=== PATIENT | male | born 1995 | race Asian ===

== ENCOUNTER 2021-12-18 08:36 | Inpatient (IN) ==
--- NOTE | 2021-12-07 08:57 | Anesthesiology Consultation ---
Date of Service December 07, 2021 Assessment & Plan (1) Encounter for pre-operative examination: COVID screening: Per assessment on 12/07: No known COVID-19 positive contacts or current COVID-19 related symptoms. Travel screen negative. Patient vaccinated. At surgeon discretion if preop Covid testing being done. Chart Review Chart Review: Acceptable Risk for Surgery and Patient NOT seen in Pre Admission Testing History Surgery Operation Date: 12/18/21 11:30 Proposed Procedures p Robotic Laparoscopic Assisted Partial Nephrectomy - Left - Caesar Arnold MD Height/Weight Height: 5 ft 10 in Weight: 67.132 kg Allergies Allergy/AdvReac Type Severity Reaction Status Date / Time No Known Allergies Allergy Verified 12/07/21 08:26 Medications Home Medications Medication Instructions Recorded Confirmed Last Taken Lactobacil.acidophilus-Bifido.animalis 1 cap PO DAILY 12/07/21 12/07/21 Unknown 5 billion cell sprinkle capsule (Probiotic) Past Medical History Medical History Acid reflux Occasional Renal mass, left Past Family History Family History Other No family history of adverse response to anesthesia Past Surgical History Surgical History [place] teeth removed Social History Smoking Status: Never smoker Hx Alcohol Use: Yes Alcohol type: beer, wine and hard liquor alcohol intake frequency: a few times a month substance use type: does not use Lab Results Anesthesia Preop Results Results Anesthesia Widget: WBC 4.04 K/ul (4.8-10.8) L 11/20/21 Hgb 15.3 g/dl (14.0-18.0) 11/20/21 Hct 44.3 % (40.1-51.0) 11/20/21 Plt 259 K/uL (130-400) 11/20/21 Na 139 mmol/L (136-145) 11/20/21 K 4.0 mmol/L (3.5-5.1) 11/20/21 Cl 105 mmol/L (98-107) 11/20/21 CO2 29 mmol/L (21-32) 11/20/21 BUN 11 mg/dl (6-23) 11/20/21 Creat 0.81 mg/dl (0.6-1.4) 11/20/21 Glucose Level 75 mg/dl (70-99(Fasting)) 11/20/21 Urine Color Yellow 11/20/21 Urine Appearance Clear (Clear) 11/20/21 Urine pH 6.5 (4.5-7.5) 11/20/21 Urine Specific [place] 1.003 (1.000-1.030) 11/20/21 Urine Protein Negative (Negative) 11/20/21 Urine Glucose (UA) Negative (Negative) 11/20/21 Urine Ketones Negative (Negative) 11/20/21 Urine Blood Negative (Negative) 11/20/21 Urine Nitrite Negative (Negative) 11/20/21 Urine Bilirubin Negative (Negative) 11/20/21 Urine Urobilinogen Negative (Negative) 11/20/21 Urine Leukocyte Esterase Negative (Negative) 11/20/21 Testing Other Testing Chest CT (11/20/21) No acute intrathoracic abnormality. No lymphadenopathy or evidence of pulmonary metastatic disease. Indeterminate 4 mm solid nodule of the basal left lower lobe is favored to be benign, stable from 09/25/2021. As a precautionary measure, a 3 month follow-up chest CT may be considered.
[~2021-12-18 08:36] MED LIST: LIDOCAINE 2% MPF LOCAL 5 ML VIAL INFIL ONE; LR 15ML/HR IV SCH; PROPOFOL IV EMULSION 10 MG/ML 20 ML VIAL IV ONE; ROCURONIUM BROMIDE 10 MG/ML 5 ML VIAL IV ONE; ceFAZolin 2000MG 2,000 MG/15 ML SYR IV SCH
[2021-12-18] MEDS ORDERED: ATROPINE SULFATE 0.1 MG/ML 10ML SYR IV PRN (08:56)
[2021-12-18] MEDS ORDERED: fentaNYL citrate 100 MCG/2 ML VIAL IV PRN (08:56)
[2021-12-18] MEDS ORDERED: ePHEDrine sulfate 50 MG/ML AMP IV PRN (08:56)
[2021-12-18] MEDS ORDERED: ONDANSETRON INJ 2 MG/ML 2 ML VIAL IV PRN ×2 (08:56→14:48)
--- NOTE | 2021-12-18 10:26 | History & Physical Report ---
Date of Service December 18, 2021 Assessment & Plan (1) Renal mass: Plan: suspected RCC plan for lap/robotic partial nephrectomy today risks, benefits, and expectations reviewed History of Present Illness Primary Care Provider: Kofi Tapia healthy 26y/o male with an incidentally discovered left renal mass here for partial nephrectomy Allergies Allergy/AdvReac Type Severity Reaction Status Date / Time No Known Allergies Allergy Verified 12/18/21 08:55 Home Medications Medication Instructions Recorded Confirmed Type Lactobacil.acidophilus-Bifido.animalis 1 cap PO DAILY 12/07/21 12/18/21 History 5 billion cell sprinkle capsule (Probiotic) Past Med/Surg History Medical History Acid reflux Occasional Renal mass, left Surgical History [place] teeth removed Family History Other No family history of adverse response to anesthesia Social History (Updated 11/02/21 @ 13:13 by June Conroy) Smoking Status: Never smoker Second Hand Exposure: Yes ( A CHILD (FATHER SMOKED)); Hx Alcohol Use: Yes Alcohol type: beer, wine and hard liquor Preferred Language: Wolof Communication Ability Comment: PT'S FIRST IS INDONESIAN BUT DENIES 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 Required: No Beliefs That Will Affect Care: None marital status: Single Current Living Situation: Other Current Living Situation Comment: [employer]>LIVES OFF CAMPUS *1 ROOMATE current occupational status: student Feels Safe at Home: Yes Safety Concerns: Feels Safe At This Time Assistive Devices: None Physical Exam Constitutional: well developed and well nourished Neck: neck nontender Respiratory: normal respiratory effort; no respiratory distress and does not use accessory muscles Cardiovascular: Rate/Rhythm: regular rate Vessels: radial pulses present Extremities: no edema Gastrointestinal (Abdomen): Inspection/Auscultation: abdomen normal to inspection Percussion/Palpation: abdomen soft; abdomen nontender and no guarding Musculoskeletal: Head/Neck/Chest: normocephalic and head atraumatic Extremities: extremities normal to inspection Skin: no rashes and no lesions Trauma: no evidence of skin trauma Neurologic: awake; not obtunded Speech / Cognition: normal speech Motor/Sensory: no tremor Psychiatric: Orientation: alert and oriented x 3 Genitourinary: no CVA tenderness Lymphatic: no lymphadenopathy Results & Data ([facility]) Vital Signs (Past 12 Hours) Vital Signs Temp Pulse Resp BP Pulse Ox O2 Del Method 12/18/21 09:00 37.1 C 93 H 16 131/84 100 Room Air
[2021-12-18] MEDS ORDERED: MIDAZOLAM HCL 1 MG/ML 2ML VIAL ONE (10:36)
[2021-12-18] MEDS ORDERED: fentaNYL citrate 100 MCG/2 ML VIAL ONE (10:36)
[2021-12-18] MEDS ORDERED: ACETAMINOPHEN 1000 MG/100 ML IV IV ONE (10:39)
[2021-12-18] MEDS ORDERED: MANNITOL 25% 12.5 GM/50 ML VIAL IV ONE ×2 (10:48→12:53)
[2021-12-18] MEDS ORDERED: BUPIVACAINE 0.5 % 5 MG/1 ML MPF 30ML VIAL ONE (11:04)
[2021-12-18] MEDS ORDERED: DEXAMETHASONE SOD INJ 4 MG/ML VIAL ONE (11:27)
[2021-12-18] MEDS ORDERED: ROCURONIUM BROMIDE 10 MG/ML 5 ML VIAL IV ONE (11:29)
[2021-12-18] MEDS ORDERED: HYDROmorphone INJ 2 MG/ML SYR/VIAL ONE (11:57)
[2021-12-18] MEDS ORDERED: SURGICEL ABSORB HEMOSTAT 2IN X 14IN TOP ONE (12:32)
[2021-12-18] MEDS ORDERED: FLOSEAL HEMOSTATIC MATRIX 10ML TOP ONE (12:32)
[2021-12-18] MEDS ORDERED: TISSEEL FIBRIN SEALANT 10ML TOP ONE ×2 (12:32→13:02)
[2021-12-18] MEDS ORDERED: ONDANSETRON INJ 2 MG/ML 2 ML VIAL ONE (12:44)
[2021-12-18] MEDS ORDERED: GLYCOPYRROLATE 0.2 MG/ML VIAL ONE (12:44)
[2021-12-18] MEDS ORDERED: NEOSTIGMINE METHYLSULFATE 1 MG/ML 10ML VIAL ONE (12:44)
--- NOTE | 2021-12-18 13:53 | Operative Report ---
PG Post Operative Report Pre & Post Diagnosis Operation Date: 12/18/21 10:20 Pre-Op Diagnosis: Left Renal Mass Post-Op Diagnosis: Left Renal Mass I identified the patient and participated in the time-out.: Yes Procedure Operation Date: 12/18/21 10:20 Actual Procedures p Left Robotic Laparoscopic Assisted Partial Nephrectomy(Left) - Caesar Arnold MD Surgeon Caesar Arnold MD Applications Sales Representative Nani Menard Estimated Blood Loss 25 Findings Consistent with Post-Op Diagnosis Specimens Left renal mass Description of Procedure The patient was identified in the preoperative holding area, appropriate informed consents were reviewed and completed and the patient was transferred to the operative suite. Upon arrival, appropriate antibiotics and anesthesia were administered and the patient was placed in [id number] left side up lateral decubitus position with the bed flexed and padded and appropriate fashion. Following sterile prep and drape a Veress needle was passed into the left upper quadrant. Insufflation was uniform to 15 mmHg. I marked tentative port sites with 2 senior it assistant ports placed along the midline and 3 robotic ports placed lateral to the rectus border. An infraumbilical 12 mm senior it assistant port was placed utilizing a Visiport and 10 mm 0 degree lens. Entry to the abdomen was uncomplicated and he had no adhesive disease. I was able to place all other ports under direct vision without difficulty. We then docked the robot. Of note, protuberant mass was easily visualized in the left upper quadrant consistent with the location of the tumor. I did mobilize the lateral border of the colon and mesentery off of the kidney exposing the anterior surface of Gerota's fascia. He is extremely thin and has an attenuated Gerota's fascia. I was able to expose the mass and kidney itself circumferentially around the border. I then turned my attention to the lower pole of the kidney, I elevated and identified the gonadal vein. We dissected just lateral to the gonadal vein and followed up to the inferior aspect of the renal vein. The renal vein was dissected circumferentially and a renal artery was visualized immediately posterior to it. There were numerous small venous branches around this area that we left intact. Following complete skeletonization of the mass and the hilar structures we prepared to clamp. 12.5 g of mannitol was administered and a short curved bulldog clamp was placed across the renal artery. We then resected the mass entirely. Reapproximation of the kidney was conducted utilizing a sliding clip technique with 3 passes across the defect. This closed the defect appropriately and the bulldog clamp was opened and removed. Warm ischemia time was 7 minutes. There was no bleeding after removal of the clamp. The hilar structures were also intact. The kidney returned to its pink color appropriately. We did place a small amount of Floseal and Tisseel over the defect before closing Gerota's fascia utilizing a running 3 OV lock suture. The omentum was draped back over the kidney, the mass was collected in an Endo Catch bag and withdrawn through the infraumbilical port. The infraumbilical port was closed with 0 Vicryl through the fascia followed by 4-0 Monocryl to the skin. The upper midline senior it assistant port was closed in the same fashion. 3 robotic ports were closed with 4-0 Monocryl through the skin. All areas were infiltrated with half percent Marcaine. A decision was made not to leave a drain in place. His Katz catheter was also removed shortly after surgery as the renal defect was quite shallow. Nani Robles and Chris Menard were present and assisted throughout the case. I attest to the content of the Intraoperative Record and any orders documented therein. Any exceptions are noted below.
--- NOTE | 2021-12-18 14:18 | Anesthesiology Progress Note ---
Date of Service December 18, 2021 Anesthesia Post Procedure Vital Signs Vital Signs: Temp Pulse Pulse Resp BP Pulse Ox O2 Del Method 12/18/21 14:10 92 H 12 136/85 100 Room Air 12/18/21 14:00 94 H 14 137/87 100 Room Air 12/18/21 13:50 92 H 14 139/93 99 Room Air 12/18/21 13:43 97.9 F 96 H 16 144/95 H 100 Oxymask 12/18/21 09:00 98.8 F 93 H 16 131/84 100 Room Air O2 Flow Rate 12/18/21 14:10 12/18/21 14:00 12/18/21 13:50 12/18/21 13:43 3 12/18/21 09:00 Pain Intensity Abdomen: Pain Intensity: 3 Transfer of Care Handoff Completed per policy Notes Mental Status: alert / awake / arousable and participated in evaluation Patient Amnestic to Procedure: Yes Nausea / Vomiting: adequately controlled Pain: adequately controlled Airway Patency, RR, SpO2: stable & adequate BP & HR: stable & adequate Hydration State: stable & adequate Anesthetic Complications: no major complications apparent and Pt Satisfied with anesthetic care
[2021-12-18] MEDS ORDERED: oxyCODONE HCL IR 5 MG TAB (IMMEDIATE RELEASE) PO PRN ×2 (14:48)
[2021-12-18] MEDS ORDERED: MoRPHine SULFATE 2 MG/ML CARP IV PRN (14:48)
[2021-12-18] MEDS ORDERED: MoRPHine SULFATE 4 MG/ML 1 ML CARP\\VIAL IV PRN (14:48)
[2021-12-18 15:04] LABS: Hematocrit (blood only) 43.3 % (40.1-51.0); Hemoglobin 15.1 g/dl (14.0-18.0); Mean Corpuscular Hemoglobin 30.8 pg (25.0-34.0); Mean Corpuscular Hgb Conc 34.9 g/dL (32.0-36.0); Mean Corpuscular Volume 88.4 fL (80.0-100.0); Mean Platelet Volume 9.9 fL (9.4-12.4); Platelet Count 217 K/uL (130-400); RDW Coefficient of Variation 12.3 % (11.5-14.5); RDW Standard Deviation 39.8 fL (36.4-46.3)
[2021-12-18 15:23] LABS: Basophils # (auto) 0.02 K/uL (0-0.2); Basophils % (auto) 0.1 %; Immature Granulocytes # (auto) 0.06 K/uL (0.00-0.02); Immature Granulocytes % (auto) 0.4 %; Lymphocytes # (auto) 0.66 K/uL (1.2-3.4); Lymphocytes % (auto) 4.6 %; Monocytes # (auto) 0.16 K/uL (0.24-0.82); Monocytes % (auto) 1.1 %; Neutrophils % (auto) 93.8 %; RBC Morphology Unremarkable
[2021-12-18] MEDS: LACTATED RINGER'S 1,000 ML IV SCH ×2 (15:26→22:38)
[2021-12-18 15:30] LABS: BUN Creatinine Ratio 9.6 (10-20); Calcium 8.9 mg/dl (8.5-10.1); Creatinine Clr Calc Pharmacy 111.7 ml/min; Est GFR (African American) 127.4 ml/min; Est GFR (Non-African American) 109.9 ml/min; Potassium 4.3 mmol/L (3.5-5.1)
[2021-12-18] MEDS: ceFAZolin 2000MG 2,000 MG/15 ML SYR IV SCH ×2 (16:15→22:51)
[2021-12-18] MEDS: DOCUSATE SODIUM 100 MG CAP PO SCH (20:38)
[2021-12-19] MEDS: ACETAMINOPHEN 325 MG TAB PO PRN ×3 (05:27→18:29)
[2021-12-19 07:28] LABS: Basophils # (auto) 0.02 K/uL (0-0.2); Basophils % (auto) 0.2 %; Eosinophils # (auto) 0.01 K/uL (0-0.50); Eosinophils % (auto) 0.1 %; Hematocrit (blood only) 38.9 % (40.1-51.0); Hemoglobin 13.6 g/dl (14.0-18.0); Immature Granulocytes # (auto) 0.03 K/uL (0.00-0.02); Immature Granulocytes % (auto) 0.3 %; Lymphocytes # (auto) 1.35 K/uL (1.2-3.4); Lymphocytes % (auto) 11.5 %; Mean Corpuscular Hemoglobin 31.3 pg (25.0-34.0); Mean Corpuscular Volume 89.6 fL (80.0-100.0); Mean Platelet Volume 9.6 fL (9.4-12.4); Monocytes # (auto) 1.29 K/uL (0.24-0.82); Neutrophils # (auto) 9.05 K/uL (1.4-6.5); Neutrophils % (auto) 76.9 %; Platelet Count 194 K/uL (130-400); RDW Coefficient of Variation 11.9 % (11.5-14.5); RDW Standard Deviation 38.8 fL (36.4-46.3); Red Blood Count 4.34 M/uL (4.63-6.08); White Blood Count 11.75 K/ul (4.8-10.8)
[2021-12-19 07:48] LABS: BUN Creatinine Ratio 11.8 (10-20); Calcium 8.7 mg/dl (8.5-10.1); Creatinine Clr Calc Pharmacy 140.2 ml/min; Est GFR (African American) 143.9 ml/min; Est GFR (Non-African American) 124.2 ml/min; Potassium 3.7 mmol/L (3.5-5.1)
--- NOTE | 2021-12-19 08:05 | Urology Progress Note ---
Date of Service December 19, 2021 Assessment & Plan (1) Renal mass: Plan: Suspected renal cell carcinoma status post left robotic partial nephrectomy Recovery very much on pace Ambulate Advance diet Labs are stable Admission and Anticipated Discharge Date Admission Date: December 18, 2021 Subjective Doing very well overall Has some expected abdominal discomfort and some post insufflation pain radiating to his shoulders but otherwise doing extremely well Urinating without issue Labs are all stable Tolerating liquid dietwe will advance this morning Incisions all appropriate Physical Exam Physical Exam: Abdomen soft, moderately tender more on the right than the left, incisions appropriate Results & Data ([facility]) Vital Signs (Past 12 Hours) Vital Signs Temp Pulse Resp BP Pulse Ox O2 Del Method 12/19/21 07:14 36.4 C L 53 L 16 111/67 100 Room Air 12/19/21 05:23 36.5 C 74 14 149/86 H 99 Room Air 12/19/21 01:40 36.8 C 68 14 110/62 99 Room Air 12/18/21 21:48 37.1 C 88 14 120/73 98 Room Air PG Care Time/CCT Total # of Minutes Spent Total Time Spent with Patient: Total time spent is greater than 50% in coordination of care (as documented) at patient's floor/unit and/or counseling patient: Coding Level of Care Code None Diagnoses Renal mass N28.89
[2021-12-19] MEDS: LACTATED RINGER'S 1,000 ML IV SCH ×2 (08:22→18:27)
[2021-12-19] MEDS: DOCUSATE SODIUM 100 MG CAP PO SCH ×2 (08:23→20:15)
[2021-12-19] MEDS ORDERED: ALUMINUM/MAGNESIUM SUSP 30 ML UDC PO PRN (19:44)
[2021-12-20] MEDS ORDERED: bisacodyL 10 MG SUPP PR PRN (00:58)
[2021-12-20] MEDS: ACETAMINOPHEN 325 MG TAB PO PRN (03:05)
[2021-12-20 06:57] LABS: Basophils # (auto) 0.01 K/uL (0-0.2); Basophils % (auto) 0.1 %; Eosinophils # (auto) 0.01 K/uL (0-0.50); Eosinophils % (auto) 0.1 %; Hematocrit (blood only) 36.5 % (40.1-51.0); Hemoglobin 12.7 g/dl (14.0-18.0); Immature Granulocytes # (auto) 0.04 K/uL (0.00-0.02); Immature Granulocytes % (auto) 0.5 %; Lymphocytes # (auto) 0.98 K/uL (1.2-3.4); Lymphocytes % (auto) 11.9 %; Mean Corpuscular Hgb Conc 34.8 g/dL (32.0-36.0); Mean Platelet Volume 9.3 fL (9.4-12.4); Monocytes # (auto) 0.85 K/uL (0.24-0.82); Monocytes % (auto) 10.3 %; Neutrophils # (auto) 6.33 K/uL (1.4-6.5); Neutrophils % (auto) 77.1 %; Platelet Count 165 K/uL (130-400); RDW Standard Deviation 39.2 fL (36.4-46.3); White Blood Count 8.22 K/ul (4.8-10.8)
[2021-12-20 07:22] LABS: Anion Gap 4 (3-11); BUN Creatinine Ratio 13.6 (10-20); Blood Urea Nitrogen 9 mg/dl (6-23); Calcium 8.5 mg/dl (8.5-10.1); Carbon Dioxide 29 mmol/L (21-32); Chloride 105 mmol/L (98-107); Creatinine Clr Calc Pharmacy 161.4 ml/min; Est GFR (African American) > 150.0 ml/min; Est GFR (Non-African American) 131.6 ml/min; Glucose 102 mg/dl (70-99(Fasting)); Potassium 3.5 mmol/L (3.5-5.1); Sodium 138 mmol/L (136-145)
[2021-12-20] MEDS: DOCUSATE SODIUM 100 MG CAP PO SCH (09:07)
--- NOTE | 2021-12-20 09:15 | Urology Progress Note ---
Date of Service December 20, 2021 Assessment & Plan (1) Renal mass: Plan -Postop day #2 status post left robotic partial nephrectomy -Overall feeling well, progressing as expected. -Remains afebrile and hemodynamically stable. -Labs stable. -Voiding without issue. -Tolerating diet. -Anticipate discharge home later today. Admission and Anticipated Discharge Date Admission Date: December 18, 2021 Supervising Physician Co-Signing Physician Notes Doing great, ready for d/c home Subjective Patient examined at bedside this AM. Awake, resting in bed on arrival. No acute distress. States he did have some gas pain and feelings of constipation overnight. He was given a suppository and had a small bowel movement this morning and is passing gas. Feeling much better now. Denies any significant pain at present. No fevers or chills. No nausea or vomiting. Tolerating diet. Ambulating. Voiding without issue. Denies hematuria or dysuria. Review of Systems Constitutional: as per Subjective / HPI Gastrointestinal: as per Subjective / HPI Genitourinary: + as per Subjective / HPI Physical Exam Constitutional: no acute distress Respiratory: normal respiratory effort; no respiratory distress and no labored breathing Gastrointestinal (Abdomen): Percussion/Palpation: abdomen soft; abdomen nontender Incisions appropriate, Dermabond intact. Neurologic: awake Psychiatric: Orientation: alert and oriented x 3 Results & Data ([facility]) Vital Signs (Past 12 Hours) Vital Signs Temp Pulse Resp BP Pulse Ox O2 Del Method 12/20/21 08:10 36.8 C 74 16 120/71 98 Room Air 12/19/21 22:19 36.9 C 74 18 118/73 98 Room Air PG Care Time/CCT Total # of Minutes Spent Total Time Spent with Patient: Total time spent is greater than 50% in coordination of care (as documented) at patient's floor/unit and/or counseling patient: Coding Level of Care Code None Diagnoses Renal mass N28.89
--- NOTE | 2021-12-20 10:06 | Discharge Summary ---
Date of Service December 20, 2021 Admission HPI Per Admitting Provider 26y/o male with an incidentally discovered left renal mass who presents for left partial nephrectomy Admission Exam Per Admitting Provider Constitutional: well developed and well nourished Neck: neck nontender Respiratory: normal respiratory effort; no respiratory distress and does not use accessory muscles Cardiovascular: Rate/Rhythm: regular rate Vessels: radial pulses present Extremities: no edema Gastrointestinal (Abdomen): Inspection/Auscultation: abdomen normal to inspection Percussion/Palpation: abdomen soft; abdomen nontender and no guarding Musculoskeletal: Head/Neck/Chest: normocephalic and head atraumatic Extremities: extremities normal to inspection Skin: no rashes and no lesions Trauma: no evidence of skin trauma Neurologic: awake; not obtunded Speech / Cognition: normal speech Motor/Sensory: no tremor Psychiatric: Orientation: alert and oriented x 3 Genitourinary: no CVA tenderness Lymphatic: no lymphadenopathy Principal Diagnosis Left renal mass Discharge Exam Constitutional: no acute distress Respiratory: normal respiratory effort; no respiratory distress and no labored breathing Gastrointestinal (Abdomen): Percussion/Palpation: abdomen soft; abdomen nontender Incisions appropriate, Dermabond intact. Neurologic: awake Psychiatric: Orientation: alert and oriented x 3 Discharge Data Allergies Allergy/AdvReac Type Severity Reaction Status Date / Time No Known Allergies Allergy Verified 12/18/21 08:55 Procedures Performed Operation Date: 12/18/21 10:20 Actual Procedures p Left Robotic Laparoscopic Assisted Partial Nephrectomy(Left) - Caesar Arnold MD Hospital Course (1) Renal mass: Plan 26-year-old male admitted status post left partial nephrectomy. The patient tolerated the procedure very well. He had no acute issues postoperatively. His labs were appropriate and stable. He was voiding without issue. Reported minimal pain. Passing gas and moving his bowels. Tolerating a diet. Ambulating independently. He was subsequently discharged home on postop day #2. He was in stable condition at time of discharge. Postop follow-up appointment in place. Total Time Total Time Spent Total Time Spent (In Minutes): 15 Discharge Plan Discharge Items Patient Disposition: Home - Self-Care Reason For Visit: Renal Mass Discharge Diagnosis: Renal mass Activity: Per Instructions section Lifting: No more than 25 pounds Bathing Comment: Okay to shower. No tub baths or soaks. Sexual Activity: Wait until after follow-up appointment Exercise/Sports: Wait until after follow-up appointment Driving/Machine Use: Do not drive if taking prescription pain medication Non-emergency contact: Surgeon and Urologist Call non-emergency contact if: you have any medication questions, your pain is not controlled, your pain is worsening, you have a fever, your wound has increased redness, your wound has increased drainage and your wound pain has increased Follow-up/Referrals: Caesar Arnold MD [Physician] - 01/02/22 10:20 am Kofi Tapia [Primary Care Provider] - Diet: Regular Addtl Attending Provider Instructions: Please take all medications as prescribed and keep all follow-ups as scheduled. Please call our office at [phone] with any questions, concerns or need to reschedule appointments for any reason. We are happy to assist you. Recovering at home: We recommend having someone with you for the first few days after surgery to help care for you. It is okay to shower. Please avoid swimming, bathing or using hot tub until incisions are well healed. Avoid driving until you are not requiring prescription pain medication any further. Walk at least a few times a day. Increase your distance, as you feel able. Stairs in your home are okay. Please avoid strenuous or sexual activity until your follow-up. We recommend using a stool softener (i.e. Colace) to prevent constipation and straining, especially the first two weeks post operatively. This can be bought over the counter. You can take Tylenol for pain as needed. Stay well hydrated. Call [facility] at [phone] if you experience: Chest pain or trouble breathing (call 441 or go to the hospital). Fever of 101F or higher, severe nausea or vomiting. Symptoms of infection at incision site, including redness or swelling, warmth, or foul smelling drainage Pain that is not controlled with medicines Pending Studies at Discharge: Yes (Pathology) Stand-Alone Forms: My [employer], Smoking Cessation Medications and DC Order Prescriptions: Continued Probiotic 5 billion cell Capsule, Sprinkle 1 cap PO DAILY Discharge Orders: Discharge Order (Routine); Ordered 12/20/21 Ordered By: Nani Giordano/Other Patient Handouts: Nephrectomy Dc Admission Data Admit Date/Time: 12/18/21 13:47 Attending Provider: Caesar Arnold Admit Provider: Caesar Arnold Primary Care Provider: Kofi Tapia Other Interventions: Discharge Summary Assessment (RN) Last Done: 12/20/21 10:14 Coding Level of Care Code D/C DAY MANAGEMENT <30 MINS Diagnoses Renal mass N28.89
== END 2021-12-20 12:43 | disposition home or self-care (01) | DRG 658 ==
LOC: ASU 08:36 → PACUINP 13:47 → 3E 15:25
DX: Z79.899 Other long term (current) drug therapy; K59.00 Constipation, unspecified; C64.2 Malignant neoplasm of left kidney, except renal pelvis